=== PATIENT | male | born 1990 | race American Indian/Alaskan Native ===

== ENCOUNTER 2017-08-21 11:39 | Emergency (ER) | payer OTHER ==
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
[2017-08-21] MEDS ORDERED: MOTRIN PO ONE (15:36)
[2017-08-21 15:42] LABS: Hematocrit 34.6 % (35.5-45.6); Hemoglobin 11.9 gm/dl (11.8-15.2); Mean Corpuscular HGB Conc 34 % (32-34); Mean Corpuscular Hemoglobin 30 pg (28-32); Mean Corpuscular Volume 86 fl (84-94); Platelet Count 249 K/mm3 (140-440); Red Blood Count 4.03 M/mm3 (3.65-5.03); Red Cell Distribution Width 13.3 % (13.2-15.2); White Blood Count 3.4 K/mm3 (4.5-11.0)
--- NOTE | 2017-08-21 15:55 | XRay Report ---
BILATERAL RIBS: History: Chest pain, rib pain. Routine views of the rib cage demonstrate normal mineralization with no significant contour abnormalities, fractures or destructive lesions. PA view of the chest demonstrates no underlying cardiopulmonary abnormalities, fluid or pneumothorax. IMPRESSION: Normal bilateral ribs.
[2017-08-21 16:02] LABS: Creatine Kinase MB 1.2 ng/mL (0.0-4.0)
[2017-08-21 16:03] LABS: Anion Gap 14 mmol/L; Blood Urea Nitrogen 9 mg/dL (9-20); Calcium 7.9 mg/dL (8.4-10.2); Carbon Dioxide 24 mmol/L (22-30); Chloride 102.4 mmol/L (98-107); Creatine Kinase 166 units/L (55-170); Glucose 72 mg/dL (75-100); Potassium 3.9 mmol/L (3.6-5.0); Sodium 136 mmol/L (137-145)
[2017-08-21 17:08] LABS: Blastocytes % (Manual) 0 %
[2017-08-21 17:12] LABS: Basophils % (Manual) 0 % (0.0-1.8); Eosinophils % (Manual) 0 % (0.0-4.3)
[2017-08-21 17:14] LABS: Diff Status Complete; Platelet Estimate Consistent w Auto; RBC Morphology Normal
[2017-08-21 17:28] VITALS: BP 134/74
== END 2017-08-21 17:29 | disposition home or self-care (01) ==
LOC: ED 11:39
DX: S13.4XXA Sprain of ligaments of cervical spine, initial encounter (principal); R07.9 Chest pain, unspecified; J45.909 Unspecified asthma, uncomplicated; V49.49XA Driver injured in collision with other motor vehicles in traffic accident, initial encounter; Y93.9 Activity, unspecified; Y92.9 Unspecified place or not applicable; Y99.9 Unspecified external cause status
CPT/HCPCS: 36415; 71111; 80048; 82550; 82553; 84484; 85007; 85025; 93005; 93010

== ENCOUNTER 2017-11-05 22:28 | Inpatient (IN) | payer OTHER ==
[2017-11-05 23:50] LABS: Hematocrit 36.6 % (35.5-45.6); Hemoglobin 12.5 gm/dl (11.8-15.2); Mean Corpuscular HGB Conc 34 % (32-34); Mean Corpuscular Hemoglobin 30 pg (28-32); Mean Corpuscular Volume 87 fl (84-94); Platelet Count 263 K/mm3 (140-440); Red Blood Count 4.23 M/mm3 (3.65-5.03); Red Cell Distribution Width 12.7 % (13.2-15.2); White Blood Count 3.5 K/mm3 (4.5-11.0)
[2017-11-05 23:55] LABS: Alanine Aminotransferase 8 units/L (7-56); Albumin 2.4 g/dL (3.9-5); Albumin/Globulin Ratio 0.3 %; Alkaline Phosphatase 66 units/L (35-129); Anion Gap 14 mmol/L; BUN/Creatinine Ratio 11; Blood Urea Nitrogen 10 mg/dL (9-20); Calcium 7.8 mg/dL (8.4-10.2); Carbon Dioxide 25 mmol/L (22-30); Glucose 101 mg/dL (75-100); Lipase 21 units/L (13-60); Potassium 3.6 mmol/L (3.6-5.0); Sodium 136 mmol/L (137-145); Total Protein 9.8 g/dL (6.3-8.2)
[2017-11-06 01:44] LABS: Basophils % (Manual) 0 % (0.0-1.8); Blastocytes % (Manual) 0 %
[2017-11-06 01:46] LABS: Diff Status Complete; Platelet Estimate Consistent w Auto
--- NOTE | 2017-11-06 02:52 | Emergency Department Report ---
ED Abdominal Pain HPI - General Chief Complaint: Abdominal Pain Stated Complaint: ABD PAIN Time Seen by Provider: 11/06/17 02:49 Source: patient Mode of arrival: Ambulatory Limitations: No Limitations - History of Present Illness MD Complaint: abdominal pain -: Gradual, month(s) Location: LLQ, RLQ Radiation: none Migration to: no migration Severity scale (0 -10): 8 Quality: stabbing, aching Consistency: constant, intermittent Improves With: rest Worsens With: movement Context: recent injury Associated Symptoms: hematochezia Treatments Prior to Arrival: NSAIDs - Related Data Home Medications Medication Instructions Recorded Confirmed Last Taken No Known Home Medications [No 11/06/17 11/06/17 Unknown Reported Home Medications] Allergies Allergy/AdvReac Type Severity Reaction Status Date / Time No Known Allergies Allergy Verified 07/21/14 05:03 ED Review of Systems ROS: Stated complaint: ABD PAIN Other details as noted in HPI Comment: All other systems reviewed and negative Constitutional: denies: chills, fever Eyes: denies: eye pain, eye discharge, vision change ENT: denies: ear pain, throat pain Respiratory: denies: cough, shortness of breath, wheezing Cardiovascular: denies: chest pain, palpitations Endocrine: no symptoms reported Gastrointestinal: abdominal pain. denies: nausea, diarrhea Genitourinary: denies: urgency, dysuria Musculoskeletal: denies: back pain, joint swelling, arthralgia Skin: denies: rash, lesions Neurological: denies: headache, weakness, paresthesias Psychiatric: denies: anxiety, depression Hematological/Lymphatic: denies: easy bleeding, easy bruising ED Past Medical Hx - Past Medical History Previous Medical History?: Yes Hx Hypertension: No Hx Asthma: Yes Additional medical history: mumur. "eyes disease" Constipation - Surgical History Additional Surgical History: finger surgery. Left inguinal hernia repair - Family History Family history: hypertension - Social History Smoking Status: Never Smoker Substance Use Type: None - Medications Home Medications: Home Medications Medication Instructions Recorded Confirmed Last Taken Type No Known Home Medications [No 11/06/17 11/06/17 Unknown History Reported Home Medications] ED Physical Exam - General Limitations: No Limitations General appearance: alert, in no apparent distress - Head Head exam: Present: atraumatic, normocephalic - Eye Eye exam: Present: normal appearance - ENT ENT exam: Present: mucous membranes moist - Neck Neck exam: Present: normal inspection - Respiratory Respiratory exam: Present: normal lung sounds bilaterally. Absent: respiratory distress - Cardiovascular Cardiovascular Exam: Present: regular rate, normal rhythm. Absent: systolic murmur, diastolic murmur, rubs, gallop - GI/Abdominal GI/Abdominal exam: Present: soft, tenderness (bilateral lower quadrant tenderness), normal bowel sounds - Rectal Rectal exam: Present: deferred - Extremities Exam Extremities exam: Present: normal inspection - Back Exam Back exam: Present: normal inspection - Neurological Exam Neurological exam: Present: alert, oriented X3 - Psychiatric Psychiatric exam: Present: normal affect, normal mood - Skin Skin exam: Present: warm, dry, intact, normal color. Absent: rash ED Course Vital Signs 11/05/17 11/06/17 11/06/17 22:54 00:20 03:50 Temperature 98.4 F Pulse Rate 81 89 86 Respiratory 16 18 18 Rate Blood Pressure 123/87 Blood Pressure 137/95 132/78 [Right] O2 Sat by Pulse 100 96 99 Oximetry ED Medical Decision Making - Lab Data Result diagrams: 11/05/17 23:20 11/05/17 23:20 - Medical Decision Making Due to rectal bleeding and abdominal pain. Will admit patient for further evaluation. Dr. Turner consult for admission. Dr. Rodriguez accepted the patient. Dr. Gimenez made aware CT findings and he will consult and Hospital. Critical care attestation.: If time is entered above; I have spent that time in minutes in the direct care of this critically ill patient, excluding procedure time. ED Disposition Clinical Impression: Abdominal pain, Rectal bleeding Disposition: OP ADMIT IP TO THIS HOSP Is pt being admited?: Yes Does the pt Need Aspirin: No Condition: Serious Referrals: TERRANCE YEPEZ MD [Primary Care Provider] - 3-5 Days Time of Disposition: 05:56
[2017-11-06 03:46] LABS: Bilirubin,Urine NEG (Negative); Blood,Urine LG (Negative); Ketones,Urine NEG (Negative); Leukocyte Esterase,Urine MOD (Negative); Mucus,Urine FEW /HPF; Nitrite,Urine NEG (Negative); Urobilinogen,Urine < 2.0 mg/dL (<2.0)
[2017-11-06 03:51] LABS: WBC,Urine > 182.0 /HPF (0.0-6.0)
[2017-11-06] MEDS ORDERED: NACL ONE (04:32)
--- NOTE | 2017-11-06 05:09 | Cat Scan Report ---
FINAL REPORT EXAM: CT ABDOMEN PELVIS WO/W CON HISTORY: abd pain rt side TECHNIQUE: Initially noncontrast imaging was obtained of the abdomen and pelvis. Subsequently, repeat imaging was obtained of the abdomen and pelvis following the intravenous injection of 100 cc of Omnipaque 350. Delayed imaging was obtained along with sagittal and coronal reconstructions. Comparison is made to the study of 08/30/2015. FINDINGS: The lung bases are clear. Pleural fluid is not identified. The liver, spleen, pancreas and adrenal glands appear normal. The gallbladder is contracted. The kidneys enhance normally. There is no evidence of stones or hydronephrosis. The vascular structures enhance normally. The bowel loops are normal in caliber and course. There is a large amount retained feces in the colon. The appendix is not enlarged. There is no evidence of free fluid. There are multiple benign-appearing mesenteric lymph nodes which are normal in size. In the pelvis the prostate gland and bladder appear normal. The previously noted left inguinal hernia has been repaired. The skeletal structures appear well maintained. 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 IMPRESSION: No acute process in the abdomen and pelvis. No evidence of renal stones or obstructive uropathy. No evidence of appendicitis. 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
[2017-11-06] MEDS ORDERED: TYLENOL PO PRN (06:27)
[2017-11-06] MEDS ORDERED: ZOFRAN IV PRN (06:27)
--- NOTE | 2017-11-06 06:30 | History and Physical Report ---
History of Present Illness Date of examination: 11/06/17 History of present illness: 27-year-old man with no medical problems discussed emergency room with complaints of lower abdominal pain and rectal bleed. He describes the abdominal pain as sharp, constant and started in February after of hernia repair surgery. Intensity 06/02, radiating to the back, he cannot identify exacerbating or relieving factors. He has been worked up before the CAT scan, ultrasound which were unrevealing. He also stated he said the rectal bleed since February and usually occurs with bowel movement. Yesterday he had 2 episodes of rectal bleed associated with bowel movement. He does strain to have a bowel movement Review Of Systems: Constitutional: no weight loss Ears, eyes, nose, mouth and throat: no nasal congestion, no nasal discharge, no sinus pressure, blurry vision, diplopia Neck: No neck pain or rigidity. Cardiovascular: No chest pain, palpitations Respiratory: No shortness of breath, cough Gastrointestinal: + abdominal pain, hematochezia Genitourinary : no dysuria, frequency , hematuria Musculoskeletal: no muscle ache Integumentary: no rash, no pruritis Neurological: no parathesias, focal weakness Endocrine: no cold or heat intolerance, no polyuria or polydipsia Hematologic/Lymphatic: no easy bruising, no easy bleeding, no gland swelling Allergic/Immunologic: no urticaria, no angioedema. PAST MEDICAL HISTORY: None PAST SURGICAL HISTORY: Hernia repair, finger surgery FAMILY HISTORY: Hypertension SOCIAL HISTORY: Denies alcohol, tobacco, drugs Medications and Allergies Allergies Allergy/AdvReac Type Severity Reaction Status Date / Time No Known Allergies Allergy Verified 07/21/14 05:03 Home Medications Medication Instructions Recorded Confirmed Last Taken Type No Known Home Medications [No 11/06/17 11/06/17 Unknown History Reported Home Medications] Exam - Physical Exam Narrative exam: Gen. appearance: Patient lying in bed in no acute distress HEENT: Normocephalic/atraumatic, pupils equal round reactive to light, extra occular movement intact, no scleral icterus, no JVD or thyromegaly or nodule, neck is supple, mucous membrane moist, no erythema or exudate Heart: S1-S2, regular rate and rhythm Lungs: Clear to auscultation bilateral breathing comfortable Abdomen: Positive bowel sounds, tender in lower abdomen, nondistended, no organomegaly Extremities: No edema, cyanosis, clubbing Neuro:: Oriented 3 , cranial nerves II-12 intact, speech, motor intact Skin: No rash, nodules, warm dry - Constitutional Vitals: Temp Pulse Resp BP Pulse Ox 98.4 F 86 18 132/78 99 11/05/17 22:54 11/06/17 03:50 11/06/17 03:50 11/06/17 03:50 11/06/17 03:50 Results - Labs CBC & Chem 7: 11/05/17 23:20 11/05/17 23:20 Labs: Abnormal lab results 11/05/17 11/05/17 11/06/17 Range/Units 23:20 23:20 03:25 WBC 3.5 L (4.5-11.0) K/mm3 RDW 12.7 L (13.2-15.2) % Lymphocytes # (Manual) 1.0 L (1.2-5.4) K/mm3 Sodium 136 L (137-145) mmol/L Glucose 101 H (75-100) mg/dL Calcium 7.8 L (8.4-10.2) mg/dL Total Protein 9.8 H (6.3-8.2) g/dL Albumin 2.4 L (3.9-5) g/dL Ur Specific [place] 1.032 H (1.003-1.030) Urine WBC (Auto) > 182.0 H (0.0-6.0) /HPF - Imaging and Cardiology CT scan - abdomen: report reviewed CT scan - pelvis: report reviewed Assessment and Plan Assessment Celiac artery stenosis Rectal bleed secondary to hemorrhoids Abdominal pain UTI Plan Admit to medicine Start IV fluids, IV Rocephin, monitor serial hemoglobin Consultation GI, interventional radiology DVT prophylaxis
[2017-11-06] MEDS ORDERED: ROCEPHIN/NS 1 GM/50 ML 1 GM/50 ML BAG IV SCH (07:00)
[2017-11-06] MEDS ORDERED: NACL 0.9% 1000 ML 1,000 ML IV SCH (07:00)
[2017-11-06 07:34] LABS: Hematocrit 33.9 % (35.5-45.6)
[2017-11-06] MEDS: cefTRIAXone 1 GM in NACL 0.9% 20 ML IV SCH (07:45)
--- NOTE | 2017-11-06 09:25 | Gastroenterology Consultation ---
<BRENDAALEKSAMIRA Amato - Last Filed: 11/06/17 09:25> History of Present Illness - Reason for Consult Consult date: 11/06/17 rectal bleeding Requesting physician: ALISHA MAYBERRY III - History of Present Illness Patient is a 27 y/o male with with PMH of inguinal hernia repair who presented to the ED with c/o lower abdominal pain and rectal bleeding. Abd CT scan showed celiac artery stenosis. IR has been consulted. H/H on admission was WNL. This morning pt was resting in bed w/o acute distress and family at bedside. He reports lower abdominal pain has been constant since February following his hernia repair with times of more intense pain than others and radiates across entire lower abdomen. Pain is some times exacerbated postprandially but not always. He states rectal bleeding of bright red blood has been intermittent since the beginning of this year after BMs. Reports 2 episodes of rectal bleeding yesterday but none today. Admits to occasional constipation with straining to have a BM with associated rectal burning and pain. No NSAID use or hx of liver disease. No Fhx of colon CA. No previous colonoscopy. Denies fever, wt loss, CP , SOB, dizziness, N/V, hematemesis, melena, or diarrhea. Past History Past Medical History: No medical history Past Surgical History: hernia repair (inguinal), Other (finger) Social history: lives with family. denies: smoking, alcohol abuse Family history: hypertension Medications and Allergies Allergies Allergy/AdvReac Type Severity Reaction Status Date / Time No Known Allergies Allergy Verified 07/21/14 05:03 Home Medications Medication Instructions Recorded Confirmed Last Taken Type No Known Home Medications [No 11/06/17 11/06/17 Unknown History Reported Home Medications] Active Meds: Active Medications Sodium Chloride (Nacl 0.9% 1000 Ml) 1,000 mls @ 75 mls/hr IV DIRECT JOSÉ MIGUEL Last Admin: 11/06/17 07:00 Dose: 75 mls/hr Ceftriaxone Sodium 1 gm/ (Sodium Chloride) 20 mls @ 20 mls/10 min IV Q24HR JOSÉ MIGUEL Last Admin: 11/06/17 07:45 Dose: 20 mls/10 min Morphine Sulfate (Morphine) 2 mg IV Q4H PRN PRN Reason: Pain, Moderate (4-6) Ondansetron HCl (Zofran) 4 mg IV Q8H PRN PRN Reason: N/V unrelieved by Reglan Review of Systems - Review of Systems All systems: negative Gastrointestinal: abdominal pain, hematochezia Exam - Constitutional Vital Signs: Temp Pulse Resp BP Pulse Ox 98.3 F 75 20 127/91 98 11/06/17 06:50 11/06/17 07:15 11/06/17 07:15 11/06/17 07:15 11/06/17 08:17 General appearance: no acute distress, well-nourished - EENT Eyes: PERRL, EOM intact ENT: hearing intact - Respiratory Respiratory: bilateral: CTA - Cardiovascular Rhythm: regular Heart Sounds: Present: S1 & S2 Extremities: No edema - Gastrointestinal General gastrointestinal: Present: soft, tender (mild TTP across lower abdomen) , non-distended, normal bowel sounds - Integumentary Integumentary: Present: warm, dry - Neurologic Neurological: alert and oriented x3 - Labs CBC & Chem 7: 11/06/17 07:09 11/05/17 23:20 Lab Results: Laboratory Results - last 24 hr 11/05/17 11/05/17 11/06/17 23:20 23:20 03:25 WBC 3.5 L RBC 4.23 Hgb 12.5 Hct 36.6 MCV 87 MCH 30 MCHC 34 RDW 12.7 L Plt Count 263 Add Manual Diff Complete Total Counted 100 Seg Neuts % (Manual) 67.0 Band Neutrophils % 0 Lymphocytes % (Manual) 28.0 Reactive Lymphs % (Man) 1.0 Monocytes % (Manual) 1.0 Eosinophils % (Manual) 3.0 Basophils % (Manual) 0 Metamyelocytes % 0 Myelocytes % 0 Promyelocytes % 0 Blast Cells % 0 Nucleated RBC % Not Reportable Seg Neutrophils # Man 2.3 Band Neutrophils # 0.0 Lymphocytes # (Manual) 1.0 L Abs React Lymphs (Man) 0.0 Monocytes # (Manual) 0.0 Eosinophils # (Manual) 0.1 Basophils # (Manual) 0.0 Metamyelocytes # 0.0 Myelocytes # 0.0 Promyelocytes # 0.0 Blast Cells # 0.0 WBC Morphology Not Reportable Hypersegmented Neuts Not Reportable Hyposegmented Neuts Not Reportable Hypogranular Neuts Not Reportable Smudge Cells Not Reportable Toxic Granulation Not Reportable Toxic Vacuolation Not Reportable Dohle Bodies Not Reportable Pelger-Huet Anomaly Not Reportable Lester Rods Not Reportable Platelet Estimate Consistent w auto Clumped Platelets Not Reportable Plt Clumps, EDTA Not Reportable Large Platelets Not Reportable Giant Platelets Not Reportable Platelet Satelliting Not Reportable Plt Morphology Comment Not Reportable RBC Morphology Not Reportable Dimorphic RBCs Not Reportable Polychromasia Not Reportable Hypochromasia Not Reportable Poikilocytosis Not Reportable Anisocytosis Not Reportable Microcytosis Not Reportable Macrocytosis Not Reportable Spherocytes Not Reportable Pappenheimer Bodies Not Reportable Sickle Cells Not Reportable Target Cells Not Reportable Tear Drop Cells Not Reportable Ovalocytes Not Reportable Helmet Cells Not Reportable [place] Bodies Not Reportable [place] Rings Not Reportable Jocelin Cells Not Reportable Bite Cells Not Reportable Crenated Cell Not Reportable Elliptocytes Not Reportable Acanthocytes (Spur) Not Reportable Rouleaux Not Reportable Hemoglobin C Crystals Not Reportable Schistocytes Not Reportable Malaria parasites Not Reportable [place] Bodies Not Reportable Hem Pathologist Commnt No Sodium 136 L Potassium 3.6 Chloride 101.0 Carbon Dioxide 25 Anion Gap 14 BUN 10 Creatinine 0.9 Estimated GFR > 60 BUN/Creatinine Ratio 11 Glucose 101 H Calcium 7.8 L Total Bilirubin 0.30 AST 20 ALT 8 Alkaline Phosphatase 66 Total Protein 9.8 H Albumin 2.4 L Albumin/Globulin Ratio 0.3 Lipase 21 Urine Color Yellow Urine Turbidity Slightly-cloudy Urine pH 6.0 Ur Specific [place] 1.032 H Urine Protein 30 mg/dl Urine Glucose (UA) Neg Urine Ketones Neg Urine Blood Lg Urine Nitrite Neg Urine Bilirubin Neg Urine Urobilinogen < 2.0 Ur Leukocyte Esterase Mod Urine WBC (Auto) > 182.0 H Urine RBC (Auto) 116.0 U Epithel Cells (Auto) < 1.0 Urine Mucus Few 11/06/17 07:09 WBC RBC Hgb 12.0 Hct 33.9 L MCV MCH MCHC RDW Plt Count Add Manual Diff Total Counted Seg Neuts % (Manual) Band Neutrophils % Lymphocytes % (Manual) Reactive Lymphs % (Man) Monocytes % (Manual) Eosinophils % (Manual) Basophils % (Manual) Metamyelocytes % Myelocytes % Promyelocytes % Blast Cells % Nucleated RBC % Seg Neutrophils # Man Band Neutrophils # Lymphocytes # (Manual) Abs React Lymphs (Man) Monocytes # (Manual) Eosinophils # (Manual) Basophils # (Manual) Metamyelocytes # Myelocytes # Promyelocytes # Blast Cells # WBC Morphology Hypersegmented Neuts Hyposegmented Neuts Hypogranular Neuts Smudge Cells Toxic Granulation Toxic Vacuolation Dohle Bodies Pelger-Huet Anomaly Lester Rods Platelet Estimate Clumped Platelets Plt Clumps, EDTA Large Platelets Giant Platelets Platelet Satelliting Plt Morphology Comment RBC Morphology Dimorphic RBCs Polychromasia Hypochromasia Poikilocytosis Anisocytosis Microcytosis Macrocytosis Spherocytes Pappenheimer Bodies Sickle Cells Target Cells Tear Drop Cells Ovalocytes Helmet Cells [place] Bodies [place] Cells Bite Cells Crenated Cell Elliptocytes Acanthocytes (Spur) Rouleaux Hemoglobin C Crystals Schistocytes Malaria parasites Abelino Bodies Hem Pathologist Commnt Sodium Potassium Chloride Carbon Dioxide Anion Gap BUN Creatinine Estimated GFR BUN/Creatinine Ratio Glucose Calcium Total Bilirubin AST ALT Alkaline Phosphatase Total Protein Albumin Albumin/Globulin Ratio Lipase Urine Color Urine Turbidity Urine pH Ur Specific [place] Urine Protein Urine Glucose (UA) Urine Ketones Urine Blood Urine Nitrite Urine Bilirubin Urine Urobilinogen Ur Leukocyte Esterase Urine WBC (Auto) Urine RBC (Auto) U Epithel Cells (Auto) Urine Mucus Assessment and Plan 1.abd pain 2.rectal bleeding -WBC- WNL -afebrile -Abd CT scan revealed celiac artery stenosis- most likely etiology of abd pain -IR has been consulted- pt discussed with IR- okay given to prep for colon tomorrow -HGB 12.0 -continue to monitor H/H and transfuse as needed -hold blood thinning medications -currently hemodynamically stable -will schedule for a colonoscopy in am -clear liquid diet today then NPO after MN -will follow <DIANN SANDOVAL - Last Filed: 11/06/17 09:57> Medications and Allergies Active Meds: Active Medications Sodium Chloride (Nacl 0.9% 1000 Ml) 1,000 mls @ 75 mls/hr IV DIRECT JOSÉ MIGUEL Last Admin: 11/06/17 07:00 Dose: 75 mls/hr Ceftriaxone Sodium 1 gm/ (Sodium Chloride) 20 mls @ 20 mls/10 min IV Q24HR JOSÉ MIGUEL Last Admin: 11/06/17 07:45 Dose: 20 mls/10 min Morphine Sulfate (Morphine) 2 mg IV Q4H PRN PRN Reason: Pain, Moderate (4-6) Ondansetron HCl (Zofran) 4 mg IV Q8H PRN PRN Reason: N/V unrelieved by Reglan Polyethylene Glycol/Electrolytes (Golytely) 4,000 ml PO ONCE ONE Stop: 11/06/17 14:01 Exam - Constitutional Vital Signs: Temp Pulse Resp BP Pulse Ox 98.5 F 78 18 118/78 97 11/06/17 08:57 11/06/17 08:57 11/06/17 08:57 11/06/17 08:57 11/06/17 08:57 - Labs CBC & Chem 7: 11/06/17 07:09 11/05/17 23:20 Lab Results: Laboratory Results - last 24 hr 11/05/17 11/05/17 11/06/17 23:20 23:20 03:25 WBC 3.5 L RBC 4.23 Hgb 12.5 Hct 36.6 MCV 87 MCH 30 MCHC 34 RDW 12.7 L Plt Count 263 Add Manual Diff Complete Total Counted 100 Seg Neuts % (Manual) 67.0 Band Neutrophils % 0 Lymphocytes % (Manual) 28.0 Reactive Lymphs % (Man) 1.0 Monocytes % (Manual) 1.0 Eosinophils % (Manual) 3.0 Basophils % (Manual) 0 Metamyelocytes % 0 Myelocytes % 0 Promyelocytes % 0 Blast Cells % 0 Nucleated RBC % Not Reportable Seg Neutrophils # Man 2.3 Band Neutrophils # 0.0 Lymphocytes # (Manual) 1.0 L Abs React Lymphs (Man) 0.0 Monocytes # (Manual) 0.0 Eosinophils # (Manual) 0.1 Basophils # (Manual) 0.0 Metamyelocytes # 0.0 Myelocytes # 0.0 Promyelocytes # 0.0 Blast Cells # 0.0 WBC Morphology Not Reportable Hypersegmented Neuts Not Reportable Hyposegmented Neuts Not Reportable Hypogranular Neuts Not Reportable Smudge Cells Not Reportable Toxic Granulation Not Reportable Toxic Vacuolation Not Reportable Dohle Bodies Not Reportable Pelger-Huet Anomaly Not Reportable Lester Rods Not Reportable Platelet Estimate Consistent w auto Clumped Platelets Not Reportable Plt Clumps, EDTA Not Reportable Large Platelets Not Reportable Giant Platelets Not Reportable Platelet Satelliting Not Reportable Plt Morphology Comment Not Reportable RBC Morphology Not Reportable Dimorphic RBCs Not Reportable Polychromasia Not Reportable Hypochromasia Not Reportable Poikilocytosis Not Reportable Anisocytosis Not Reportable Microcytosis Not Reportable Macrocytosis Not Reportable Spherocytes Not Reportable Pappenheimer Bodies Not Reportable Sickle Cells Not Reportable Target Cells Not Reportable Tear Drop Cells Not Reportable Ovalocytes Not Reportable Helmet Cells Not Reportable [place] Bodies Not Reportable [place] Rings Not Reportable [place] Cells Not Reportable Bite Cells Not Reportable Crenated Cell Not Reportable Elliptocytes Not Reportable Acanthocytes (Spur) Not Reportable Rouleaux Not Reportable Hemoglobin C Crystals Not Reportable Schistocytes Not Reportable Malaria parasites Not Reportable [place]ino Bodies Not Reportable Hem Pathologist Commnt No Sodium 136 L Potassium 3.6 Chloride 101.0 Carbon Dioxide 25 Anion Gap 14 BUN 10 Creatinine 0.9 Estimated GFR > 60 BUN/Creatinine Ratio 11 Glucose 101 H Calcium 7.8 L Total Bilirubin 0.30 AST 20 ALT 8 Alkaline Phosphatase 66 Total Protein 9.8 H Albumin 2.4 L Albumin/Globulin Ratio 0.3 Lipase 21 Urine Color Yellow Urine Turbidity Slightly-cloudy Urine pH 6.0 Ur Specific [place] 1.032 H Urine Protein 30 mg/dl Urine Glucose (UA) Neg Urine Ketones Neg Urine Blood Lg Urine Nitrite Neg Urine Bilirubin Neg Urine Urobilinogen < 2.0 Ur Leukocyte Esterase Mod Urine WBC (Auto) > 182.0 H Urine RBC (Auto) 116.0 U Epithel Cells (Auto) < 1.0 Urine Mucus Few 11/06/17 07:09 WBC RBC Hgb 12.0 Hct 33.9 L MCV MCH MCHC RDW Plt Count Add Manual Diff Total Counted Seg Neuts % (Manual) Band Neutrophils % Lymphocytes % (Manual) Reactive Lymphs % (Man) Monocytes % (Manual) Eosinophils % (Manual) Basophils % (Manual) Metamyelocytes % Myelocytes % Promyelocytes % Blast Cells % Nucleated RBC % Seg Neutrophils # Man Band Neutrophils # Lymphocytes # (Manual) Abs React Lymphs (Man) Monocytes # (Manual) Eosinophils # (Manual) Basophils # (Manual) Metamyelocytes # Myelocytes # Promyelocytes # Blast Cells # WBC Morphology Hypersegmented Neuts Hyposegmented Neuts Hypogranular Neuts Smudge Cells Toxic Granulation Toxic Vacuolation Dohle Bodies Pelger-Huet Anomaly Lester Rods Platelet Estimate Clumped Platelets Plt Clumps, EDTA Large Platelets Giant Platelets Platelet Satelliting Plt Morphology Comment RBC Morphology Dimorphic RBCs Polychromasia Hypochromasia Poikilocytosis Anisocytosis Microcytosis Macrocytosis Spherocytes Pappenheimer Bodies Sickle Cells Target Cells Tear Drop Cells Ovalocytes Helmet Cells [place] Bodies [place] Rings Jocelin Cells Bite Cells Crenated Cell Elliptocytes Acanthocytes (Spur) Rouleaux Hemoglobin C Crystals Schistocytes Malaria parasites Abelino Bodies Hem Pathologist Commnt Sodium Potassium Chloride Carbon Dioxide Anion Gap BUN Creatinine Estimated GFR BUN/Creatinine Ratio Glucose Calcium Total Bilirubin AST ALT Alkaline Phosphatase Total Protein Albumin Albumin/Globulin Ratio Lipase Urine Color Urine Turbidity Urine pH Ur Specific [place] Urine Protein Urine Glucose (UA) Urine Ketones Urine Blood Urine Nitrite Urine Bilirubin Urine Urobilinogen Ur Leukocyte Esterase Urine WBC (Auto) Urine RBC (Auto) U Epithel Cells (Auto) Urine Mucus Assessment and Plan - Patient Problems (1) Abdominal pain Current Visit: Yes Status: Acute (2) Rectal bleeding Current Visit: Yes Status: Acute Plan to address problem: The patient was seen and examined. The GI care plan was discussed. Colonoscopy is planned for tomorrow AM to investigate recurrent rectal bleeding. Thank you for asking us to see him in consultation. Diann Sandoval MD
[2017-11-06] MEDS: MORPHINE IV PRN (10:10)
--- NOTE | 2017-11-06 12:09 | Progress Note ---
Assessment and Plan Assessment and plan: Patient is a 27-year-old man with history of left inguinal hernia repair in [place] February 2017 and HIV (since 2016) loss to follow-up since he moved from [place] presents with abdominal pain and rectal bleeding. Hemoglobin has been normal. Patient white count was low and albumin was severely low; so I asked patient about his HIV status and he admits to NOT including this information. 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 Follow-up on current diagnosis/abdominal pain and rectal bleeding. Overnight uneventful. Patient denies any chest pain, shortness breath, nausea/vomiting or severe headaches. Imaging, nursing note, chart, labs and old chart reviewed. Discussed with patient. Hospitalist Physical - Physical exam Narrative exam: GEN: WDWN, NAD, AWAKE, ALERT, ORIENTATED 3 HEENT: NCAT, EOMI, PERRL, OP Clear NECK: supple, no adenopathy, no thyromegaly, no JVD CVS/HEART: RRR, NORMAL S1S2, NO JVD, pulses present bilaterally CHEST/LUNGS: CTA B, Symmetrical chest expansion, good air entry bilaterally GI/Abdomen: soft, NTND, good bowel sounds, no guarding or rebound /Bladder: no suprapubic tenderness, no CVA or paraspinal tenderness EXT/Skin: no c/c/e, no obvious rash MSK: FROM x 4 Neuro: CN 2-12 grossly intact, no new focal deficits Psych: calm - Constitutional Vitals: Temp Pulse Resp BP Pulse Ox 98.5 F 78 18 118/78 97 11/06/17 08:57 11/06/17 08:57 11/06/17 08:57 11/06/17 08:57 11/06/17 08:57 Results - Labs CBC & Chem 7: 11/06/17 07:09 12/13/17 23:20 Labs: Laboratory Last Values WBC 3.5 K/mm3 (4.5-11.0) L 11/05/17 23:20 RBC 4.23 M/mm3 (3.65-5.03) 11/05/17 23:20 Hgb 12.0 gm/dl (11.8-15.2) 11/06/17 07:09 Hct 33.9 % (35.5-45.6) L 11/06/17 07:09 MCV 87 fl (84-94) 11/05/17 23:20 MCH 30 pg (28-32) 11/05/17 23:20 MCHC 34 % (32-34) 11/05/17 23:20 RDW 12.7 % (13.2-15.2) L 11/05/17 23:20 Plt Count 263 K/mm3 (140-440) 11/05/17 23:20 Add Manual Diff Complete 11/05/17 23:20 Total Counted 100 11/05/17 23:20 Seg Neuts % (Manual) 67.0 % (40.0-70.0) 11/05/17 23:20 Band Neutrophils % 0 % 11/05/17 23:20 Lymphocytes % (Manual) 28.0 % (13.4-35.0) 11/05/17 23:20 Reactive Lymphs % (Man) 1.0 % 11/05/17 23:20 Monocytes % (Manual) 1.0 % (0.0-7.3) 11/05/17 23:20 Eosinophils % (Manual) 3.0 % (0.0-4.3) 11/05/17 23:20 Basophils % (Manual) 0 % (0.0-1.8) 11/05/17 23:20 Metamyelocytes % 0 % 11/05/17 23:20 Myelocytes % 0 % 11/05/17 23:20 Promyelocytes % 0 % 11/05/17 23:20 Blast Cells % 0 % 11/05/17 23:20 Nucleated RBC % Not Reportable 11/05/17 23:20 Seg Neutrophils # Man 2.3 K/mm3 (1.8-7.7) 11/05/17 23:20 Band Neutrophils # 0.0 K/mm3 11/05/17 23:20 Lymphocytes # (Manual) 1.0 K/mm3 (1.2-5.4) L 11/05/17 23:20 Abs React Lymphs (Man) 0.0 K/mm3 11/05/17 23:20 Monocytes # (Manual) 0.0 K/mm3 (0.0-0.8) 11/05/17 23:20 Eosinophils # (Manual) 0.1 K/mm3 (0.0-0.4) 11/05/17 23:20 Basophils # (Manual) 0.0 K/mm3 (0.0-0.1) 11/05/17 23:20 Metamyelocytes # 0.0 K/mm3 11/05/17 23:20 Myelocytes # 0.0 K/mm3 11/05/17 23:20 Promyelocytes # 0.0 K/mm3 11/05/17 23:20 Blast Cells # 0.0 K/mm3 11/05/17 23:20 WBC Morphology Not Reportable 11/05/17 23:20 Hypersegmented Neuts Not Reportable 11/05/17 23:20 Hyposegmented Neuts Not Reportable 11/05/17 23:20 Hypogranular Neuts Not Reportable 11/05/17 23:20 Smudge Cells Not Reportable 11/05/17 23:20 Toxic Granulation Not Reportable 11/05/17 23:20 Toxic Vacuolation Not Reportable 11/05/17 23:20 Dohle Bodies Not Reportable 11/05/17 23:20 Pelger-Huet Anomaly Not Reportable 11/05/17 23:20 Lester Rods Not Reportable 11/05/17 23:20 Platelet Estimate Consistent w auto 11/05/17 23:20 Clumped Platelets Not Reportable 11/05/17 23:20 Plt Clumps, EDTA Not Reportable 11/05/17 23:20 Large Platelets Not Reportable 11/05/17 23:20 Giant Platelets Not Reportable 11/05/17 23:20 Platelet Satelliting Not Reportable 11/05/17 23:20 Plt Morphology Comment Not Reportable 11/05/17 23:20 RBC Morphology Not Reportable 11/05/17 23:20 Dimorphic RBCs Not Reportable 11/05/17 23:20 Polychromasia Not Reportable 11/05/17 23:20 Hypochromasia Not Reportable 11/05/17 23:20 Poikilocytosis Not Reportable 11/05/17 23:20 Anisocytosis Not Reportable 11/05/17 23:20 Microcytosis Not Reportable 11/05/17 23:20 Macrocytosis Not Reportable 11/05/17 23:20 Spherocytes Not Reportable 11/05/17 23:20 Pappenheimer Bodies Not Reportable 11/05/17 23:20 Sickle Cells Not Reportable 11/05/17 23:20 Target Cells Not Reportable 11/05/17 23:20 Tear Drop Cells Not Reportable 11/05/17 23:20 Ovalocytes Not Reportable 11/05/17 23:20 Helmet Cells Not Reportable 11/05/17 23:20 [place] Bodies Not Reportable 11/05/17 23:20 [place] Rings Not Reportable 11/05/17 23:20 [place] Cells Not Reportable 11/05/17 23:20 Bite Cells Not Reportable 11/05/17 23:20 Crenated Cell Not Reportable 11/05/17 23:20 Elliptocytes Not Reportable 11/05/17 23:20 Acanthocytes (Spur) Not Reportable 11/05/17 23:20 Rouleaux Not Reportable 11/05/17 23:20 Hemoglobin C Crystals Not Reportable 11/05/17 23:20 Schistocytes Not Reportable 11/05/17 23:20 Malaria parasites Not Reportable 11/05/17 23:20 Abelino Bodies Not Reportable 11/05/17 23:20 Hem Pathologist Commnt No 11/05/17 23:20 Sodium 136 mmol/L (137-145) L 11/05/17 23:20 Potassium 3.6 mmol/L (3.6-5.0) 11/05/17 23:20 Chloride 101.0 mmol/L (98-107) 11/05/17 23:20 Carbon Dioxide 25 mmol/L (22-30) 11/05/17 23:20 Anion Gap 14 mmol/L 11/05/17 23:20 BUN 10 mg/dL (9-20) 11/05/17 23:20 Creatinine 0.9 mg/dL (0.8-1.5) 11/05/17 23:20 Estimated GFR > 60 ml/min 11/05/17 23:20 BUN/Creatinine Ratio 11 % 11/05/17 23:20 Glucose 101 mg/dL (75-100) H 11/05/17 23:20 Calcium 7.8 mg/dL (8.4-10.2) L 11/05/17 23:20 Total Bilirubin 0.30 mg/dL (0.1-1.2) 11/05/17 23:20 AST 20 units/L (5-40) 11/05/17 23:20 ALT 8 units/L (7-56) 11/05/17 23:20 Alkaline Phosphatase 66 units/L (35-129) 11/05/17 23:20 Total Protein 9.8 g/dL (6.3-8.2) H 11/05/17 23:20 Albumin 2.4 g/dL (3.9-5) L 11/05/17 23:20 Albumin/Globulin Ratio 0.3 % 11/05/17 23:20 Lipase 21 units/L (13-60) 11/05/17 23:20 Urine Color Yellow (Yellow) 11/06/17 03:25 Urine Turbidity Slightly-cloudy (Clear) 11/06/17 03:25 Urine pH 6.0 (5.0-7.0) 11/06/17 03:25 Ur Specific [place] 1.032 (1.003-1.030) H 11/06/17 03:25 Urine Protein 30 mg/dl mg/dL (Negative) 11/06/17 03:25 Urine Glucose (UA) Neg mg/dL (Negative) 11/06/17 03:25 Urine Ketones Neg mg/dL (Negative) 11/06/17 03:25 Urine Blood Lg (Negative) 11/06/17 03:25 Urine Nitrite Neg (Negative) 11/06/17 03:25 Urine Bilirubin Neg (Negative) 11/06/17 03:25 Urine Urobilinogen < 2.0 mg/dL (<2.0) 11/06/17 03:25 Ur Leukocyte Esterase Mod (Negative) 11/06/17 03:25 Urine WBC (Auto) > 182.0 /HPF (0.0-6.0) H 11/06/17 03:25 Urine RBC (Auto) 116.0 /HPF (0.0-6.0) 11/06/17 03:25 U Epithel Cells (Auto) < 1.0 /HPF (0-13.0) 11/06/17 03:25 Urine Mucus Few /HPF 11/06/17 03:25
[2017-11-06] MEDS ORDERED: GOLYTELY PO ONE (14:00)
--- NOTE | 2017-11-06 14:56 | Consultation ---
History of Present Illness - Reason for Consult Consult date: 11/06/17 CT findings - History of Present Illness 27 year old male with with PMH of HIV and left inguinal hernia repair who presented to the ED with c/o lower abdominal pain and rectal bleeding. Abd CT scan showed celiac artery stenosis. The patient reports that he had abdominal pain when lifting prior to his hernia repair, and after his hernia repair in February, he has had constant pain at his lower abdomen near the pubic area extending to both right and left lateral margins of the abdomen. The patient denies that there is an association with eating. Past History Past Medical History: No medical history Past Surgical History: hernia repair (inguinal), Other (finger) Social history: lives with family. denies: smoking, alcohol abuse Family history: hypertension Medications and Allergies Allergies Allergy/AdvReac Type Severity Reaction Status Date / Time No Known Allergies Allergy Verified 07/21/14 05:03 Home Medications Medication Instructions Recorded Confirmed Last Taken Type No Known Home Medications [No 11/06/17 11/06/17 Unknown History Reported Home Medications] Active Meds: Active Medications Sodium Chloride (Nacl 0.9% 1000 Ml) 1,000 mls @ 75 mls/hr IV DIRECT JOSÉ MIGUEL Last Admin: 11/06/17 07:00 Dose: 75 mls/hr Ceftriaxone Sodium 1 gm/ (Sodium Chloride) 20 mls @ 20 mls/10 min IV Q24HR JOSÉ MIGUEL Last Admin: 11/06/17 07:45 Dose: 20 mls/10 min Morphine Sulfate (Morphine) 2 mg IV Q4H PRN PRN Reason: Pain, Moderate (4-6) Last Admin: 11/06/17 10:10 Dose: 2 mg Ondansetron HCl (Zofran) 4 mg IV Q8H PRN PRN Reason: N/V unrelieved by Reglan Last Admin: 11/06/17 10:10 Dose: 4 mg Review of Systems All systems: negative (see HPI) Exam - Constitutional Vitals: Temp Pulse Resp BP Pulse Ox 98.5 F 78 18 118/78 97 11/06/17 08:57 11/06/17 08:57 11/06/17 08:57 11/06/17 08:57 11/06/17 08:57 General appearance: Present: no acute distress - EENT Eyes: Present: EOM intact ENT: hearing intact - Respiratory Respiratory effort: normal - Extremities Extremities: pulses intact (pedal, radial and ulnar) - Abdominal General gastrointestinal: Present: soft - Psychiatric Psychiatric: appropriate mood/affect, cooperative Results - Labs CBC & Chem 7: 11/06/17 07:09 11/05/17 23:20 Labs: Abnormal lab results 11/05/17 11/05/17 11/06/17 Range/Units 23:20 23:20 03:25 WBC 3.5 L (4.5-11.0) K/mm3 Hct (35.5-45.6) % RDW 12.7 L (13.2-15.2) % Lymphocytes # (Manual) 1.0 L (1.2-5.4) K/mm3 Sodium 136 L (137-145) mmol/L Glucose 101 H (75-100) mg/dL Calcium 7.8 L (8.4-10.2) mg/dL Total Protein 9.8 H (6.3-8.2) g/dL Albumin 2.4 L (3.9-5) g/dL Ur Specific [place] 1.032 H (1.003-1.030) Urine WBC (Auto) > 182.0 H (0.0-6.0) /HPF 11/06/17 Range/Units 07:09 WBC (4.5-11.0) K/mm3 Hct 33.9 L (35.5-45.6) % RDW (13.2-15.2) % Lymphocytes # (Manual) (1.2-5.4) K/mm3 Sodium (137-145) mmol/L Glucose (75-100) mg/dL Calcium (8.4-10.2) mg/dL Total Protein (6.3-8.2) g/dL Albumin (3.9-5) g/dL Ur Specific [place] (1.003-1.030) Urine WBC (Auto) (0.0-6.0) /HPF - Imaging and Cardiology CT scan - abdomen: report reviewed, image reviewed Assessment and Plan 27-year-old male with abdominal pain after hernia repair and HIV. Incidentally found to have celiac artery narrowing. 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 The patient denies classic postprandial discomfort. The patient does not have the pain syndrome associated with median arcuate ligament narrowing and his celiac narrowing is asymptomatic at this time. 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 Consider consultation to general surgery or neurology for further management as his prior general surgery was in [facility].
[2017-11-06] MEDS ORDERED: REGLAN IV PRN (15:19)
[2017-11-07 05:52] LABS: Hematocrit 34.1 % (35.5-45.6); Hemoglobin 11.5 gm/dl (11.8-15.2); Mean Corpuscular HGB Conc 34 % (32-34); Mean Corpuscular Hemoglobin 29 pg (28-32); Mean Corpuscular Volume 86 fl (84-94); Platelet Count 243 K/mm3 (140-440); Red Blood Count 3.97 M/mm3 (3.65-5.03); Red Cell Distribution Width 13.1 % (13.2-15.2); White Blood Count 2.4 K/mm3 (4.5-11.0)
[2017-11-07 06:13] LABS: Anion Gap 12 mmol/L; BUN/Creatinine Ratio 9; Blood Urea Nitrogen 7 mg/dL (9-20); Calcium 7.7 mg/dL (8.4-10.2); Carbon Dioxide 25 mmol/L (22-30); Chloride 102.1 mmol/L (98-107); Glucose 82 mg/dL (75-100); Potassium 3.5 mmol/L (3.6-5.0); Sodium 136 mmol/L (137-145)
[2017-11-07 06:43] LABS: Basophils % (Manual) 0 % (0.0-1.8); Blastocytes % (Manual) 0 %
[2017-11-07 06:44] LABS: Anisocytosis 1+; Diff Status Complete; Ovalocytes 1+
[2017-11-07] MEDS ORDERED: NACL 0.9% 1000 ML 1,000 ML ONE (07:53)
--- NOTE | 2017-11-07 09:14 | Gastroenterology Progress Note ---
Assessment and Plan - Patient Problems (1) Abdominal pain Current Visit: Yes Status: Acute (2) Rectal bleeding Current Visit: Yes Status: Acute Plan to address problem: No bleeding overnight. He did not take the prep and did not seem motivated to do so. No significant bleeding has been present on hospital observation and will therefore plan outpatient study. I will s/o at this point and f/u with patient as an outpatient. Hopefully, he will have an out patient study. Subjective Date of service: 11/07/17 Principal diagnosis: rectal bleeding Interval history: The patient reports feeling well. He did not drink more than 1/4 of the colon prep. Objective - Constitutional Vitals: Temp Pulse Resp BP Pulse Ox 97.9 F 65 18 112/68 97 11/06/17 23:36 11/06/17 23:36 11/06/17 23:36 11/06/17 23:36 11/06/17 23:36 General appearance: no acute distress - EENT ENT: hearing intact, clear oral mucosa, dentition normal - Neck Neck: supple, normal ROM - Respiratory Respiratory effort: normal Respiratory: bilateral: CTA - Cardiovascular Rhythm: regular - Gastrointestinal General gastrointestinal: Present: soft, non-tender, non-distended, normal bowel sounds - Neurologic Neurological: alert and oriented x3 - Labs CBC & Chem 7: 11/07/17 05:35 11/07/17 05:35 Labs: Laboratory Results - last 24 hr 11/07/17 11/07/17 11/07/17 05:35 05:35 05:35 WBC 2.4 L RBC 3.97 Hgb 11.5 L Hct 34.1 L MCV 86 MCH 29 MCHC 34 RDW 13.1 L Plt Count 243 [place] % (Auto) Tractor Drill Operator Add Manual Diff Complete Total Counted 100 Seg Neuts % (Manual) 66.0 Band Neutrophils % 3.0 Lymphocytes % (Manual) 23.0 Reactive Lymphs % (Man) 0 Monocytes % (Manual) 5.0 Eosinophils % (Manual) 3.0 Basophils % (Manual) 0 Metamyelocytes % 0 Myelocytes % 0 Promyelocytes % 0 Blast Cells % 0 Nucleated RBC % Not Reportable Seg Neutrophils # Man 1.6 L Band Neutrophils # 0.1 Lymphocytes # (Manual) 0.6 L Abs React Lymphs (Man) 0.0 Monocytes # (Manual) 0.1 Eosinophils # (Manual) 0.1 Basophils # (Manual) 0.0 Metamyelocytes # 0.0 Myelocytes # 0.0 Promyelocytes # 0.0 Blast Cells # 0.0 WBC Morphology Not Reportable Hypersegmented Neuts Not Reportable Hyposegmented Neuts Not Reportable Hypogranular Neuts Not Reportable Smudge Cells Not Reportable Toxic Granulation Not Reportable Toxic Vacuolation Not Reportable Dohle Bodies Not Reportable Pelger-Huet Anomaly Not Reportable Lester Rods Not Reportable Platelet Estimate Appears normal Clumped Platelets Not Reportable Plt Clumps, EDTA Not Reportable Large Platelets Not Reportable Giant Platelets Not Reportable Platelet Satelliting Not Reportable Plt Morphology Comment Not Reportable RBC Morphology Not Reportable Dimorphic RBCs Not Reportable Polychromasia Not Reportable Hypochromasia Not Reportable Poikilocytosis Not Reportable Anisocytosis 1+ Microcytosis Not Reportable Macrocytosis Not Reportable Spherocytes Not Reportable Pappenheimer Bodies Not Reportable Sickle Cells Not Reportable Target Cells Not Reportable Tear Drop Cells Not Reportable Ovalocytes 1+ Helmet Cells Not Reportable [place] Bodies Not Reportable [place] Rings Not Reportable [place] Cells Not Reportable Bite Cells Not Reportable Crenated Cell Not Reportable Elliptocytes Not Reportable Acanthocytes (Spur) Not Reportable Rouleaux Not Reportable Hemoglobin C Crystals Not Reportable Schistocytes Not Reportable Malaria parasites Not Reportable Abelino Bodies Not Reportable Hem Pathologist Commnt No PT 13.7 INR 1.00 Sodium 136 L Potassium 3.5 L Chloride 102.1 Carbon Dioxide 25 Anion Gap 12 BUN 7 L Creatinine 0.8 Estimated GFR > 60 BUN/Creatinine Ratio 9 Glucose 82 Calcium 7.7 L
--- NOTE | 2017-11-07 11:21 | Consultation ---
History of Present Illness - Reason for Consult Consult date: 11/07/17 HIV Requesting physician: RASHAWN RODRÍGUEZ - History of Present Illness 27 years old male with history of HIV disease since October 2015, currently off ART, initially seen [place] [facility], he lost follow up. He also has history of left inguinal hernia repair in February 2017. Since then he has been c/ o severe suprapubic and rectal pain associated with rectal bleeding. Intensity 7/10, radiating to the back, he cannot identify exacerbating or relieving factors. He has been worked up before the CAT scan, ultrasound which were unrevealing. He does report foul-smelling drainage from rectum last time 2 weeks ago. Denies any recent rectal intercourse. He is bisexual. Denies any recent fever, chills, N/V/D. Upon admission, initial temperature was 98.4, heart rate 81, blood pressure 133/ 87. Initial white count 3.5. Hemoglobin 12.5. Consider 0.9. Your urinalysis showed moderate leukocyte esterase and more than 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 Microbiology: Blood cultures: 11/06 NGTD Urine cultures: 11/06 ngtd Current Antimicrobials: Ceftriaxone 11/06 Previous Antimicrobials: Past History Past Medical History: No medical history, HIV/AIDS, other Past Surgical History: hernia repair (inguinal), Other (finger) Social history: lives with family. denies: smoking, alcohol abuse Family history: hypertension Medications and Allergies Allergies Allergy/AdvReac Type Severity Reaction Status Date / Time No Known Allergies Allergy Verified 07/21/14 05:03 Home Medications Medication Instructions Recorded Confirmed Last Taken Type No Known Home Medications [No 11/06/17 11/06/17 Unknown History Reported Home Medications] Active Meds: Active Medications Sodium Chloride (Nacl 0.9% 1000 Ml) 1,000 mls @ 75 mls/hr IV DIRECT JOSÉ MIGUEL Last Admin: 11/06/17 07:00 Dose: 75 mls/hr Ceftriaxone Sodium 1 gm/ (Sodium Chloride) 20 mls @ 20 mls/10 min IV Q24HR JOSÉ MIGUEL Last Admin: 11/06/17 07:45 Dose: 20 mls/10 min Metoclopramide HCl (Reglan) 10 mg IV Q8H PRN PRN Reason: Nausea And Vomiting Morphine Sulfate (Morphine) 2 mg IV Q4H PRN PRN Reason: Pain, Moderate (4-6) Last Admin: 11/06/17 10:10 Dose: 2 mg Ondansetron HCl (Zofran) 4 mg IV Q8H PRN PRN Reason: N/V unrelieved by Reglan Last Admin: 11/06/17 10:10 Dose: 4 mg Review of Systems All systems: negative (as per HPI rest neg) Physical Examination - Physical Exam Narrative exam: General appearance: Alert in NAD, conversant Eyes: anicteric sclerae, moist conjunctivae; no lid-lag; PERRLA HENT: Atraumatic; oropharynx clear Neck: Trachea midline; supple, no thyromegaly or lymphadenopathy Lungs: CTA CV: RRR Abdomen: Soft, non-tender; no masses or hepatosplenomegaly Extremities: No peripheral edema or extremity lymphadenopathy Skin: Normal temperature, turgor and texture; no rash, ulcers or subcutaneous nodules Psych: Appropriate affect, alert and oriented to person, place and time. Neuro: alert and oriented x 3. Moving all extermities Lines: No CVL / PICC - Constitutional Vitals: Vital Signs Temp Pulse Resp BP Pulse Ox 97.9 F 65 18 112/68 97 11/06/17 23:36 11/06/17 23:36 11/06/17 23:36 11/06/17 23:36 11/06/17 23:36 Temperature -Last 24 Hours Temperature 97.9 F Temperature 98.1 F Results - Labs CBC & Chem 7: 11/07/17 05:35 11/07/17 05:35 Labs: Abnormal lab results 11/07/17 11/07/17 Range/Units 05:35 05:35 WBC 2.4 L (4.5-11.0) K/mm3 Hgb 11.5 L (11.8-15.2) gm/dl Hct 34.1 L (35.5-45.6) % RDW 13.1 L (13.2-15.2) % Seg Neutrophils # Man 1.6 L (1.8-7.7) K/mm3 Lymphocytes # (Manual) 0.6 L (1.2-5.4) K/mm3 Sodium 136 L (137-145) mmol/L Potassium 3.5 L (3.6-5.0) mmol/L BUN 7 L (9-20) mg/dL Calcium 7.7 L (8.4-10.2) mg/dL Assessment and Plan Assessment: 1) Rectal pain/bleeding: reports also + purulence discharge from rectum ? proctitis 2) UTI: urine culture neg 3) HIV disease since October 2015, never on ART, initially seen [place] [facility], he lost follow up. 4) History of left inguinal hernia repair in February 2017. 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 Plan: -obtain rectal swab NAAT and urine sample NAAT for gonorrhea and chlamydia -agree with colonoscopy -start azithromycin 1 g PO x 1 -start doxycycline 100 mg q12h for 21 days -continue ceftriaxone for now -needs HIV clinic f/u ILANA - he was seen at [facility] -check CD4/VL Thank you for Rodríguez your consultation, will follow up with you. Madeline Gambino MD Infectious Diseases Specialist [facility] ([facility] M [phone] O [phone]
[2017-11-07] MEDS: cefTRIAXone 1 GM in NACL 0.9% 20 ML IV SCH (11:45)
--- NOTE | 2017-11-07 11:51 | Progress Note ---
Assessment and Plan Assessment and plan: Patient is a 27-year-old man with history of left inguinal hernia repair in [place] February 2017 and HIV (since 2016) loss to follow-up since he moved from [place] presents with abdominal pain and rectal bleeding. Hemoglobin has been normal. Patient white count was low and albumin was severely low; so I asked patient about his HIV status and he admits to NOT including this information. 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 Marco SAHNI "Assessment: 1) Rectal pain/bleeding: reports also + purulence discharge from rectum ? proctitis 2) UTI: urine culture neg 3) HIV disease since October 2015, never on ART, initially seen [facility], he lost follow up. 4) History of left inguinal hernia repair in February 2017. 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 Plan: -obtain rectal swab NAAT and urine sample NAAT for gonorrhea and chlamydia -agree with colonoscopy" per Dr. Heike CAMPBELL "Patient Problems (1) Abdominal pain Current Visit: Yes Status: Acute (2) Rectal bleeding Current Visit: Yes Status: Acute Plan to address problem: No bleeding overnight. He did not take the prep and did not seem motivated to do so. No significant bleeding has been present on hospital observation and will therefore plan outpatient study. I will s/o at this point and f/u with patient as an outpatient. Hopefully, he will have an out patient study." per VascularDr. Gimenez: "27-year-old male with abdominal pain after hernia repair and HIV. Incidentally found to have celiac artery narrowing. 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 The patient denies classic postprandial discomfort. The patient does not have the pain syndrome associated with median arcuate ligament narrowing and his celiac narrowing is asymptomatic at this time. 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 Consider consultation to general surgery or neurology for further management as his prior general surgery was in [facility]." Since patient is non compliant with getting colonoscopy, and ID believes this is proctitis, D/W Dr. Lara. History Interval history: Patient was seen and examined. Follow-up on current diagnosis/abdominal pain and rectal bleeding. Overnight uneventful. Patient denies any chest pain, shortness breath, nausea/vomiting or severe headaches. Imaging, nursing note, chart, labs and old chart reviewed. Discussed with patient. Hospitalist Physical - Physical exam Narrative exam: GEN: WDWN, NAD, AWAKE, ALERT, ORIENTATED 3 HEENT: NCAT, EOMI, PERRL, OP Clear NECK: supple, no adenopathy, no thyromegaly, no JVD CVS/HEART: RRR, NORMAL S1S2, NO JVD, pulses present bilaterally CHEST/LUNGS: CTA B, Symmetrical chest expansion, good air entry bilaterally GI/Abdomen: soft, NTND, good bowel sounds, no guarding or rebound /Bladder: no suprapubic tenderness, no CVA or paraspinal tenderness EXT/Skin: no c/c/e, no obvious rash MSK: FROM x 4 Neuro: CN 2-12 grossly intact, no new focal deficits Psych: calm - Constitutional Vitals: Temp Pulse Resp BP Pulse Ox 97.9 F 65 18 112/68 97 11/06/17 23:36 11/06/17 23:36 11/06/17 23:36 11/06/17 23:36 11/06/17 23:36 General appearance: Present: no acute distress Results - Labs CBC & Chem 7: 11/07/17 05:35 11/07/17 05:35 Labs: Laboratory Last Values WBC 2.4 K/mm3 (4.5-11.0) L 11/07/17 05:35 RBC 3.97 M/mm3 (3.65-5.03) 11/07/17 05:35 Hgb 11.5 gm/dl (11.8-15.2) L 11/07/17 05:35 Hct 34.1 % (35.5-45.6) L 11/07/17 05:35 MCV 86 fl (84-94) 11/07/17 05:35 MCH 29 pg (28-32) 11/07/17 05:35 MCHC 34 % (32-34) 11/07/17 05:35 RDW 13.1 % (13.2-15.2) L 11/07/17 05:35 Plt Count 243 K/mm3 (140-440) 11/07/17 05:35 Swisher % (Auto) Stamping Operator 11/07/17 05:35 Add Manual Diff Complete 11/07/17 05:35 Total Counted 100 11/07/17 05:35 Seg Neuts % (Manual) 66.0 % (40.0-70.0) 11/07/17 05:35 Band Neutrophils % 3.0 % 11/07/17 05:35 Lymphocytes % (Manual) 23.0 % (13.4-35.0) 11/07/17 05:35 Reactive Lymphs % (Man) 0 % 11/07/17 05:35 Monocytes % (Manual) 5.0 % (0.0-7.3) 11/07/17 05:35 Eosinophils % (Manual) 3.0 % (0.0-4.3) 11/07/17 05:35 Basophils % (Manual) 0 % (0.0-1.8) 11/07/17 05:35 Metamyelocytes % 0 % 11/07/17 05:35 Myelocytes % 0 % 11/07/17 05:35 Promyelocytes % 0 % 11/07/17 05:35 Blast Cells % 0 % 11/07/17 05:35 Nucleated RBC % Not Reportable 11/07/17 05:35 Seg Neutrophils # Man 1.6 K/mm3 (1.8-7.7) L 11/07/17 05:35 Band Neutrophils # 0.1 K/mm3 11/07/17 05:35 Lymphocytes # (Manual) 0.6 K/mm3 (1.2-5.4) L 11/07/17 05:35 Abs React Lymphs (Man) 0.0 K/mm3 11/07/17 05:35 Monocytes # (Manual) 0.1 K/mm3 (0.0-0.8) 11/07/17 05:35 Eosinophils # (Manual) 0.1 K/mm3 (0.0-0.4) 11/07/17 05:35 Basophils # (Manual) 0.0 K/mm3 (0.0-0.1) 11/07/17 05:35 Metamyelocytes # 0.0 K/mm3 11/07/17 05:35 Myelocytes # 0.0 K/mm3 11/07/17 05:35 Promyelocytes # 0.0 K/mm3 11/07/17 05:35 Blast Cells # 0.0 K/mm3 11/07/17 05:35 WBC Morphology Not Reportable 11/07/17 05:35 Hypersegmented Neuts Not Reportable 11/07/17 05:35 Hyposegmented Neuts Not Reportable 11/07/17 05:35 Hypogranular Neuts Not Reportable 11/07/17 05:35 Smudge Cells Not Reportable 11/07/17 05:35 Toxic Granulation Not Reportable 11/07/17 05:35 Toxic Vacuolation Not Reportable 11/07/17 05:35 Dohle Bodies Not Reportable 11/07/17 05:35 Pelger-Huet Anomaly Not Reportable 11/07/17 05:35 Lester Rods Not Reportable 11/07/17 05:35 Platelet Estimate Appears normal 11/07/17 05:35 Clumped Platelets Not Reportable 11/07/17 05:35 Plt Clumps, EDTA Not Reportable 11/07/17 05:35 Large Platelets Not Reportable 11/07/17 05:35 Giant Platelets Not Reportable 11/07/17 05:35 Platelet Satelliting Not Reportable 11/07/17 05:35 Plt Morphology Comment Not Reportable 11/07/17 05:35 RBC Morphology Not Reportable 11/07/17 05:35 Dimorphic RBCs Not Reportable 11/07/17 05:35 Polychromasia Not Reportable 11/07/17 05:35 Hypochromasia Not Reportable 11/07/17 05:35 Poikilocytosis Not Reportable 11/07/17 05:35 Anisocytosis 1+ 11/07/17 05:35 Microcytosis Not Reportable 11/07/17 05:35 Macrocytosis Not Reportable 11/07/17 05:35 Spherocytes Not Reportable 11/07/17 05:35 Pappenheimer Bodies Not Reportable 11/07/17 05:35 Sickle Cells Not Reportable 11/07/17 05:35 Target Cells Not Reportable 11/07/17 05:35 Tear Drop Cells Not Reportable 11/07/17 05:35 Ovalocytes 1+ 11/07/17 05:35 Helmet Cells Not Reportable 11/07/17 05:35 [place] Bodies Not Reportable 11/07/17 05:35 Minter Rings Not Reportable 11/07/17 05:35 Jocelin Cells Not Reportable 11/07/17 05:35 Bite Cells Not Reportable 11/07/17 05:35 Crenated Cell Not Reportable 11/07/17 05:35 Elliptocytes Not Reportable 11/07/17 05:35 Acanthocytes (Spur) Not Reportable 11/07/17 05:35 Rouleaux Not Reportable 11/07/17 05:35 Hemoglobin C Crystals Not Reportable 11/07/17 05:35 Schistocytes Not Reportable 11/07/17 05:35 Malaria parasites Not Reportable 11/07/17 05:35 Abelino Bodies Not Reportable 11/07/17 05:35 Hem Pathologist Commnt No 11/07/17 05:35 PT 13.7 Sec. (12.2-14.9) 11/07/17 05:35 INR 1.00 (0.87-1.13) 11/07/17 05:35 Sodium 136 mmol/L (137-145) L 11/07/17 05:35 Potassium 3.5 mmol/L (3.6-5.0) L 11/07/17 05:35 Chloride 102.1 mmol/L (98-107) 11/07/17 05:35 Carbon Dioxide 25 mmol/L (22-30) 11/07/17 05:35 Anion Gap 12 mmol/L 11/07/17 05:35 BUN 7 mg/dL (9-20) L 11/07/17 05:35 Creatinine 0.8 mg/dL (0.8-1.5) 11/07/17 05:35 Estimated GFR > 60 ml/min 11/07/17 05:35 BUN/Creatinine Ratio 9 % 11/07/17 05:35 Glucose 82 mg/dL (75-100) 11/07/17 05:35 Calcium 7.7 mg/dL (8.4-10.2) L 11/07/17 05:35 Total Bilirubin 0.30 mg/dL (0.1-1.2) 11/05/17 23:20 AST 20 units/L (5-40) 11/05/17 23:20 ALT 8 units/L (7-56) 11/05/17 23:20 Alkaline Phosphatase 66 units/L (35-129) 11/05/17 23:20 Total Protein 9.8 g/dL (6.3-8.2) H 11/05/17 23:20 Albumin 2.4 g/dL (3.9-5) L 11/05/17 23:20 Albumin/Globulin Ratio 0.3 % 11/05/17 23:20 Lipase 21 units/L (13-60) 11/05/17 23:20 Urine Color Yellow (Yellow) 11/06/17 03:25 Urine Turbidity Slightly-cloudy (Clear) 11/06/17 03:25 Urine pH 6.0 (5.0-7.0) 11/06/17 03:25 Ur Specific [place] 1.032 (1.003-1.030) H 11/06/17 03:25 Urine Protein 30 mg/dl mg/dL (Negative) 11/06/17 03:25 Urine Glucose (UA) Neg mg/dL (Negative) 11/06/17 03:25 Urine Ketones Neg mg/dL (Negative) 11/06/17 03:25 Urine Blood Lg (Negative) 11/06/17 03:25 Urine Nitrite Neg (Negative) 11/06/17 03:25 Urine Bilirubin Neg (Negative) 11/06/17 03:25 Urine Urobilinogen < 2.0 mg/dL (<2.0) 11/06/17 03:25 Ur Leukocyte Esterase Mod (Negative) 11/06/17 03:25 Urine WBC (Auto) > 182.0 /HPF (0.0-6.0) H 11/06/17 03:25 Urine RBC (Auto) 116.0 /HPF (0.0-6.0) 11/06/17 03:25 U Epithel Cells (Auto) < 1.0 /HPF (0-13.0) 11/06/17 03:25 Urine Mucus Few /HPF 11/06/17 03:25
--- NOTE | 2017-11-07 11:59 | Discharge Summary ---
Providers - Providers Date of Admission: 11/06/17 06:27 Date of discharge: 11/07/17 Attending physician: RASHAWN WALKER 11/06/17 06:04 Consult to Physician [CONS] Routine Consulting Provider: CHERRY RAMOS Reason For Exam: ABD PAIN. Place consult to:: Dr. Ramos Notified:: Answering Service Phone number called:: [phone] Was contact made?: Yes If yes, spoke with:: Dr. Ramos Time called:: 05:50 Comment:: Dr. Farmer (er dr) spoke with Dr. Ramos 11/06/17 06:16 Consult to Physician [CONS] Routine Consulting Provider: JAMES ACEVES Reason For Exam: rectal bleed Place consult to:: Dr. Juju Aceves Notified:: Answering Service Phone number called:: [phone] Was contact made?: Yes If yes, spoke with:: Dr. Juju Aceves Time called:: 06:15 Comment:: Dr. Farmer (er dr) spoke with Dr. Juju Aceves 11/06/17 08:32 Consult to Dietitian/Nutrition [CONS] Routine Physician Instructions: Reason For Exam: Reason for Consult: Malnutrition 11/06/17 12:01 Consult to Physician [CONS] Routine Consulting Provider: WATSON BARNES Reason For Exam: HIV care Place consult to:: dr. rutledge Notified:: md Was contact made?: Yes If yes, spoke with:: dr. rutledge Time called:: 09:32 Primary care physician: TERRANCE YEPEZ Hospitalization Condition: Stable Hospital course: Patient is a 27-year-old man with history of left inguinal hernia repair in [place] February 2017 and HIV (since 2016) loss to follow-up since he moved from [place] presents with abdominal pain and rectal bleeding. Hemoglobin has been normal. Patient white count was low and albumin was severely low; so I asked patient about his HIV status and he admits to NOT including this information. 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 Rutledge "Assessment: 1) Rectal pain/bleeding: reports also + purulence discharge from rectum ? proctitis 2) UTI: urine culture neg 3) HIV disease since October 2015, never on ART, initially seen [facility], he lost follow up. 4) History of left inguinal hernia repair in February 2017. 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 Plan: -obtain rectal swab NAAT and urine sample NAAT for gonorrhea and chlamydia -agree with colonoscopy" per GIDr. Sandoval "Patient Problems (1) Abdominal pain Current Visit: Yes Status: Acute (2) Rectal bleeding Current Visit: Yes Status: Acute Plan to address problem: No bleeding overnight. He did not take the prep and did not seem motivated to do so. No significant bleeding has been present on hospital observation and will therefore plan outpatient study. I will s/o at this point and f/u with patient as an outpatient. Hopefully, he will have an out patient study." per Vascular, Dr. Ramos: "27-year-old male with abdominal pain after hernia repair and HIV. Incidentally found to have celiac artery narrowing. 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 The patient denies classic postprandial discomfort. The patient does not have the pain syndrome associated with median arcuate ligament narrowing and his celiac narrowing is asymptomatic at this time. 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 Consider consultation to general surgery or neurology for further management as his prior general surgery was in [facility]." Since patient is non compliant with getting colonoscopy, and ID believes this is proctitis, D/W Dr. Rutledge, will treat with doxy x 21 days and he needs to follow up at [facility] Disposition: DC-01 TO HOME OR SELFCARE Time spent for discharge: 35 minutes Core Measure Documentation - Palliative Care Palliative Care/ Comfort Measures: Not Applicable - Core Measures Any of the following diagnoses?: none - VTE Discharge Requirements Deep Vein Thrombosis/Pulmonary Embolism Present on Admission: No Has pt received <5 days of overlap therapy or INR<2.0: No Anticoagulant overlap therapy prescribed at discharge: No Contraindication No Overlap Therapy order at DC: Not Indicated Exam - Physical Exam Narrative exam: GEN: WDWN, NAD, AWAKE, ALERT, ORIENTATED 3 HEENT: NCAT, EOMI, PERRL, OP Clear NECK: supple, no adenopathy, no thyromegaly, no JVD CVS/HEART: RRR, NORMAL S1S2, NO JVD, pulses present bilaterally CHEST/LUNGS: CTA B, Symmetrical chest expansion, good air entry bilaterally GI/Abdomen: soft, NTND, good bowel sounds, no guarding or rebound /Bladder: no suprapubic tenderness, no CVA or paraspinal tenderness EXT/Skin: no c/c/e, no obvious rash MSK: FROM x 4 Neuro: CN 2-12 grossly intact, no new focal deficits Psych: calm - Constitutional Vitals: Temp Pulse Resp BP Pulse Ox 97.9 F 65 18 112/68 97 11/06/17 23:36 11/06/17 23:36 11/06/17 23:36 11/06/17 23:36 11/06/17 23:36 Plan Activity: other (no strenous activity until cleared by pcp) Diet: regular Additional Instructions: Sitz baths daily. Follow-up a [facility] clinic for HIV care as soon as possible: [facility]. [address], [place] [address]. Follow up with: TERRANCE YEPEZ MD [Primary Care Provider] - 3-5 Days DIANN SANDOVAL MD [Staff Physician] - 7 Days Prescriptions: Doxycycline [Vibramycin CAP] 100 mg PO BID #21 day
[2017-11-07] MEDS ORDERED: ZITHROMAX PO ONE ×2 (12:00→13:00)
[2017-11-07] MEDS ORDERED: VIBRAMYCIN PO SCH (12:00)
[2017-11-07] MEDS ORDERED: K-DUR PO ONE (13:00)
[2017-11-07] MEDS ORDERED: PNEUMOVAX 23 IM ONE (15:13)
[2017-11-07] MEDS ORDERED: Fluarix Quad 2017-2018(36 MOS+ IM ONE (15:14)
[2017-11-07] MEDS: MORPHINE IV PRN (15:49)
[2017-11-07 15:50] VITALS: BP 135/88
[2017-11-11 07:54] LABS: HIV-1 RNA QN PCR 4.63 Log cps/mL (<1.30)
== END 2017-11-07 21:50 | disposition home or self-care (01) | DRG 393 ==
LOC: ED 22:28 → 3A 11-06 06:27
PROVIDERS: ADMIT Internal Medicine; ATTEND Internal Medicine
PROC: 3E0234Z Introduction of Serum, Toxoid and Vaccine into Muscle, Percutaneous Approach (ICD-10-PCS; principal; 2017-11-07)
DX: K64.9 Unspecified hemorrhoids (principal); E43 Unspecified severe protein-calorie malnutrition; B20 Human immunodeficiency virus [HIV] disease; N39.0 Urinary tract infection, site not specified; Z68.26 Body mass index [BMI] 26.0-26.9, adult; Z91.19 Patient's noncompliance with other medical treatment and regimen; Z71.89 Other specified counseling; Z82.49 Family history of ischemic heart disease and other diseases of the circulatory system; Z23 Encounter for immunization
CPT/HCPCS: 36415; 74178; 80048; 80053; 81001; 82024; 83690; 85007; 85014; 85018; 85025; 85610; 87040; 87086; 87536; 87591; 90686; 90732; 99285; J0696; J2270; J2405; J7030; Q9967